=== PATIENT | male | born 1995 | race Caucasian/White ===

== ENCOUNTER 2018-03-25 21:02 | Emergency (ER) ==
[2018-03-25 21:34] VITALS: BMI 23.7
--- NOTE | 2018-03-25 23:34 | ED.PDOC ---
General ED Provider: Dr. LARRY ESTEBAN Chief Complaint: Psychiatric Complaint Stated Complaint: Patient is a 22 year old who is brought by police after mother called with multiple messages of expessing thought and plans to Kill self. He rescenlty lost his dad to a massive OK 8 weeks ago and apparently broke up with his girl friend. He was planning to kill himself when he goes to [place] where he used to go with his dad. Time Seen by Physician: 02:10 Mode of Arrival: Walk-In Information Source: Patient, Police Nursing and Triage Documentation Reviewed and Agree: Yes Does patient meet sepsis criteria?: No System Inflammatory Response Syndrome: Not Applicable Sepsis Protocol: For patient's 13 years and over: Temp is 96.8 and below OR 101 and greater Pulse >90 BPM Resp >20/minute Acutely Altered Mental Status Are patient's symptoms suggestive of a new infection, such as: -Pneumonia -Skin, Soft Tissue -Endocarditis -UTI -Bone, Joint Infection -Implantable Device -Acute Abdominal Infection -Wound Infection -Meningitis -Blood Stream Catheter Infection -Unknown Psychological Complaint Exam - Psychiatric Complaint/Exam Patient Complains Of: Present: Depression, Suicidal thoughts Onset/Duration: 8 weeks Symptoms Are: Still present Timing: Constant Initial Severity: Moderate Current Severity: Severe Character: Present: Depressed, Anxious, Angry, Frustrated Aggravating: Reports: None Associated Signs And Symptoms: Denies: Hostile, Confused, Hallucinating, Paranoid behavior, Sleep disturbance, Appetite change Related History: Reports: Suicidal thoughts, Suicidal plan Completed Suicide Risk Factors: None Patient Accompanied By: Police, Mental Health Worker Patient In Custody Of Police: No Social Withdrawal Present: Yes Social Isolation Present: No Prior Suicide Attempt: No Injury From Prior Suicide Attempt: No Related Surgical History: Reports: None Patient Uncooperative For Exam: No Mood: Present: Depressed, Angry, Agitated, Anxious Appearance: Present: Clean Thought Process: Present: Illogical Insight: Present: Poor Memory: Intact Judgement: Impaired Danger To Others: No Patient Medically Stable For: Psych evaluation Differential Diagnoses: Depression, Suicidal Ideation Review of Systems - Review Of Systems Constitutional: Reports: No symptoms Eyes: Reports: No symptoms Ears, Nose, Mouth, Throat: Reports: No symptoms Respiratory: Reports: No symptoms Cardiac: Reports: No symptoms GI: Reports: No symptoms : Reports: No symptoms Musculoskeletal: Reports: No symptoms Skin: Reports: No symptoms Neurological: Reports: Depressed, Emotional problems (dysfunctional Grieveing ) Endocrine: Reports: No symptoms Hematologic/Lymphatic: Reports: No symptoms All Other Systems: Reviewed and Negative Past Medical History - Past Medical History Previously Healthy: Yes Endocrine: Reports: None Cardiovascular: Reports: None Respiratory: Reports: None Hematological: Reports: None Gastrointestinal: Reports: None Genitourinary: Reports: None Neuro/Psych: Reports: None Musculoskeletal: Reports: None Cancer: Reports: None - Surgical History General Surgical History: Reports: None - Family History Family History: Reports: None - Social History Smoking Status: Former smoker Hx Substance Use: No Alcohol Screening: Occasionally - Immunizations Tetanus Shot up to Date: Yes Physical Exam - Physical Exam Appearance: Well-appearing, No pain distress, Well-nourished Eyes: ARSALAN, EOMI, Conjunctiva clear ENT: Ears normal, Nose normal, Oropharynx normal Respiratory: Airway patent, Breath sounds clear, Breath sounds equal, Respirations nonlabored Cardiovascular: RRR, Pulses normal, No rub, No murmur GI/: Soft, Nontender, No masses, Bowel sounds normal, No Organomegaly Musculoskeletal: Normal strength, ROM intact, No edema, No calf tenderness Skin: Warm, Dry, Normal color Neurological: Sensation intact, Motor intact, Reflexes intact, Cranial nerves intact, Alert, Oriented Psychiatric: Depressed Interpretation - EKG Interpretation Time of EKG #1: 21:38 Rate: Normal Rhythm: Sinus Ectopy: None ST Segment: Normal Interpretation: normal EKG Critical Care Note - Critical Care Note Total Time (mins): 0 Course - Course Hematology/Chemistry: 03/25/18 21:33 03/25/18 21:33 Orders, Labs, Meds: Lab Review 03/25/18 03/25/18 03/25/18 21:33 21:33 21:57 WBC 8.97 RBC 4.47 L Hgb 14.2 Hct 39.0 L MCV 87.2 MCH 31.8 H MCHC 36.4 H RDW Coeff of Ras 11.8 Plt Count 284 Immature Gran % (Auto) 0.3 Neut % (Auto) 49.5 Lymph % (Auto) 34.1 Teller % (Auto) 10.9 H Eos % (Auto) 4.5 Baso % (Auto) 0.7 Immature Gran # (Auto) 0.0 Neut # (Auto) 4.4 Lymph # (Auto) 3.1 Teller # (Auto) 1.0 Eos # (Auto) 0.4 Baso # (Auto) 0.1 Sodium 141.5 Potassium 3.79 Chloride 102.5 Carbon Dioxide 30.1 H Anion Gap 12.69 BUN 11.3 Creatinine 1.00 Estimated GFR (MDRD) 95.00 BUN/Creatinine Ratio 11.30 Glucose 108.0 H Calcium 8.98 Total Bilirubin 0.35 AST 24.1 ALT 18.1 Alkaline Phosphatase 78.0 Total Protein 7.54 Albumin 4.53 Globulin 3.01 Albumin/Globulin Ratio 1.50 TSH 2.220 Urine Color Urine Clarity Urine pH Ur Specific [place] Urine Protein Urine Glucose (UA) Urine Ketones Urine Blood Urine Nitrite Urine Bilirubin Urine Urobilinogen Ur Leukocyte Esterase Salicylate Level mg/dL < 1.00 Urine Opiates Screen Negative Ur Oxycodone Screen Negative Urine Methadone Screen Negative Ur Propoxyphene Screen Negative Acetaminophen < 10.0 L Ur Barbiturates Screen Negative U Tricyclic Antidepress Negative Ur Phencyclidine Scrn Negative Ur Amphetamine Screen Negative U Methamphetamines Scrn Negative U Benzodiazepines Scrn Negative Urine Cocaine Screen Negative U Cannabinoids Screen Negative Plasma/Serum Alcohol < 10.0 03/25/18 22:03 WBC RBC Hgb Hct MCV MCH MCHC RDW Coeff of Ras Plt Count Immature Gran % (Auto) Neut % (Auto) Lymph % (Auto) Teller % (Auto) Eos % (Auto) Baso % (Auto) Immature Gran # (Auto) Neut # (Auto) Lymph # (Auto) Teller # (Auto) Eos # (Auto) Baso # (Auto) Sodium Potassium Chloride Carbon Dioxide Anion Gap BUN Creatinine Estimated GFR (MDRD) BUN/Creatinine Ratio Glucose Calcium Total Bilirubin AST ALT Alkaline Phosphatase Total Protein Albumin Globulin Albumin/Globulin Ratio TSH Urine Color Yellow Urine Clarity Clear Urine pH 6.5 Ur Specific [place] 1.025 Urine Protein Negative Urine Glucose (UA) Negative Urine Ketones Negative Urine Blood Negative Urine Nitrite Negative Urine Bilirubin Negative Urine Urobilinogen 0.2 Ur Leukocyte Esterase Negative Salicylate Level mg/dL Urine Opiates Screen Ur Oxycodone Screen Urine Methadone Screen Ur Propoxyphene Screen Acetaminophen Ur Barbiturates Screen U Tricyclic Antidepress Ur Phencyclidine Scrn Ur Amphetamine Screen U Methamphetamines Scrn U Benzodiazepines Scrn Urine Cocaine Screen U Cannabinoids Screen Plasma/Serum Alcohol Orders Category Date Time Status EKG-(ED ONLY) Stat CARDIO 03/25/18 21:20 Completed ED CUSTOMER SUPPORT TECHNICIAN APPLIED ONCE EMERGENCY 03/25/18 21:20 Active ACETAMINOPHEN Stat LAB 03/25/18 21:33 Completed BLOOD ALCOHOL Stat LAB 03/25/18 21:33 Completed CBC W/ AUTO DIFF Stat LAB 03/25/18 21:33 Completed COMPREHENSIVE METABOLIC PANEL Stat LAB 03/25/18 21:33 Completed DRUG SCREEN, URINE, RAPID Stat LAB 03/25/18 21:57 Completed SALICYLATE Stat LAB 03/25/18 21:33 Completed THYROID STIMULATING HORMONE Stat LAB 03/25/18 21:33 Completed URINALYSIS C & S IF INDICATED Stat LAB 03/25/18 22:03 Completed Vital Signs: Temp Pulse Resp BP Pulse Ox 03/26/18 02:00 76 16 116/72 99 03/25/18 23:00 99 F 80 18 122/80 03/25/18 21:09 99.2 F 76 15 122/80 99 Departure - Departure Time of Disposition: 10:40 Disposition: TSF TO PSYCH HOSP/UNIT Discharge Problem: Depression (emotion), Suicidal ideations Condition: Fair Pt referred to PMD for follow-up: Yes IPMP verified?: No Allergies/Adverse Reactions: Allergies No Known Allergies Allergy (Verified 03/25/18 23:47) Pt. says allergic to horses and cats - causes sneezing. Says mice cause him to have hives. Home Medications: Ambulatory Orders 1 [No Reported Medications] 03/25/18 Disposition Discussed With: Patient, Family (mother ) Discharge Problem: Depression (emotion) Qualifiers: Depression Type: reactive depression Qualified Code(s): F32.9 - Major depressive disorder, single episode, unspecified
[2018-03-26 06:52] VITALS: TEMP 99
[2018-03-26 06:53] VITALS: BP 116/72
== END 2018-03-26 10:44 ==
LOC: ED 21:02
DX: F32.9 Major depressive disorder, single episode, unspecified (principal); R45.851 Suicidal ideations
CPT/HCPCS: 36415; 80053; 80306; 80307; 81001; 84443; 85025; 93005; 93010; 99285